=== PATIENT | male | born 1925 | race Caucasian/White ===

== ENCOUNTER 2016-09-19 10:36 | Inpatient (IN) | payer MEDICARE, OTHER ==
[~2016-09-19] VITALS: Ht 176.5 cm; Wt 87.5 kg
[2016-09-19] MEDS ORDERED: ASPIRIN 81MG TABLET PO ONE (12:00)
[2016-09-19] MEDS ORDERED: FUROSEMIDE 40MG/4ML VIAL IV ONE (12:00)
[2016-09-19 12:09] LABS: BASOPHILS % 1.2 % (0.0-2.0); EOSINOPHILS % 1.6 % (0.0-5.0); HEMATOCRIT. 42.4 % (42.0-52.0); HEMOGLOBIN. 14.3 g/dL (14.0-18.0); LYMPHOCYTES % 12.1 % (20.0-50.0); MEAN CORPUSCULAR HEMOGLOBIN 29.8 pg (28.0-32.0); MEAN CORPUSCULAR VOLUME 88.1 fL (80.0-94.0); MEAN PLATELET VOLUME 7.9 fl (7.4-10.4); MONOCYTES % 6.4 % (2.0-8.0); NEUTROPHILS % 78.7 % (40.0-76.0); PLATELET 193 x1000/uL (130-400); RED BLOOD CELL COUNT 4.82 mill/uL (4.7-6.1); RED CELL DISTRIBUTION WIDTH 13.9 % (11.6-14.6)
[2016-09-19 12:16] LABS: INR 1.4; PROTHROMBIN TIME 14.2 sec
[2016-09-19 12:21] LABS: CARBON DIOXIDE 29 mEq/L (21-32); CHLORIDE 103 mEq/L (98-107)
[2016-09-19 20:40] VITALS: BP 111/73
[2016-09-19 21:00] VITALS: BP 111/73
[2016-09-19] MEDS ORDERED: ATEN100T PO (22:28)
[2016-09-19] MEDS ORDERED: ASPI-1035 PO (22:28)
[2016-09-19] MEDS ORDERED: ATOR10TA69 PO (22:28)
[2016-09-19] MEDS ORDERED: FURO40TA5 PO (22:28)
[2016-09-19] MEDS ORDERED: ZOLPIDEM TARTRATE 5MG TABLET PO PRN (23:15)
[2016-09-19] MEDS ORDERED: ACETAMINOPHEN 325MG TABLET PO PRN (23:15)
[2016-09-19] MEDS: POTASSIUM CHLORIDE 20MEQ TABLET SR PO SCH (23:57)
[2016-09-20] VITALS: BP 110/62
[2016-09-20] MEDS ORDERED: PNEUMOCOCCAL 23-VAL P-SAC VAC 0.5 ML IM ONE (00:15)
[2016-09-20 04:00] VITALS: BP 100/56
[2016-09-20 06:34] LABS: CARBON DIOXIDE 29 mEq/L (21-32); CHLORIDE 104 mEq/L (98-107)
[2016-09-20 06:38] LABS: CREATINE KINASE 25 IU/L (39-308); CREATINE KINASE MB FRACTION 2.1 ng/mL (0.5-3.6); TROPONIN I 0.12 ng/mL (0.00-0.04)
[2016-09-20 08:00] VITALS: BP 105/66
[2016-09-20] MEDS: POTASSIUM CHLORIDE 20MEQ TABLET SR PO SCH (08:13)
[2016-09-20] MEDS: ASPIRIN 81MG EC TABLET PO SCH (08:13)
[2016-09-20] MEDS: FUROSEMIDE 40MG/4ML VIAL IVP SCH (08:13)
[2016-09-20] MEDS: ATENOLOL 100 MG TABLET PO SCH ×2 (08:14→20:49)
[2016-09-20] MEDS: ENOXAPARIN 40MG/0.4ML SYR SUBCUT SCH (08:16)
[2016-09-20 11:58] VITALS: BP 109/67
[2016-09-20 16:00] VITALS: BP 106/61
[2016-09-20] MEDS ORDERED: POTASSIUM CHLORIDE 20MEQ TABLET SR PO NR (17:45)
[2016-09-20 20:00] VITALS: BP 99/62
[2016-09-20] MEDS: ATORVASTATIN CALCIUM 10MG TABLET PO SCH (20:48)
[2016-09-21] VITALS: BP 94/63
[2016-09-21 04:00] VITALS: BP 100/67
[2016-09-21 06:30] LABS: EOSINOPHILS % 1.3 % (0.0-5.0); HEMATOCRIT. 41.9 % (42.0-52.0); LYMPHOCYTES % 12.1 % (20.0-50.0); MEAN CORPUSCULAR HEMOGLOBIN 29.4 pg (28.0-32.0); MEAN CORPUSCULAR VOLUME 88.1 fL (80.0-94.0); MEAN PLATELET VOLUME 9.6 fl (7.4-10.4); MONOCYTES % 7.4 % (2.0-8.0); NEUTROPHILS % 78.2 % (40.0-76.0); PLATELET 160 x1000/uL (130-400); RED BLOOD CELL COUNT 4.76 mill/uL (4.7-6.1); RED CELL DISTRIBUTION WIDTH 14.2 % (11.6-14.6)
[2016-09-21 07:49] LABS: CARBON DIOXIDE 31 mEq/L (21-32); CHLORIDE 102 mEq/L (98-107); TROPONIN I 0.08 ng/mL (0.00-0.04)
[2016-09-21 08:00] VITALS: BP 110/67
[2016-09-21] MEDS: ATENOLOL 100 MG TABLET PO SCH ×2 (09:00→21:00)
[2016-09-21] MEDS: POTASSIUM CHLORIDE 20MEQ TABLET SR PO SCH (09:08)
[2016-09-21] MEDS: ASPIRIN 81MG EC TABLET PO SCH (09:08)
[2016-09-21] MEDS: FUROSEMIDE 40MG/4ML VIAL IVP SCH ×2 (09:08→21:56)
[2016-09-21 10:07] LABS: PLATELET ESTIMATE NORMAL
[2016-09-21] MEDS: ENOXAPARIN 40MG/0.4ML SYR SUBCUT SCH (10:15)
[2016-09-21] MEDS ORDERED: LEVOFLOXACIN 500MG PREMIX 100 ML IV SCH ×2 (19:00→22:30)
[2016-09-21 20:00] VITALS: BP 106/67
[2016-09-21 21:43] LABS: CLARITY URINE TURBID (CLEAR); COLOR URINE RED (YELLOW); GLUCOSE URINE NEGATIVE (NEGATIVE); KETONES URINE NEGATIVE (NEGATIVE); LEUKOCYTE ESTERASE URINE 1+ (NEGATIVE); NITRITE URINE POSITIVE (NEGATIVE); OCCULT BLOOD URINE 3+ (NEGATIVE); PROTEIN URINE 1+ (NEGATIVE); SPECIFIC GRAVITY URINE 1.012 (1.005-1.030); UROBILINOGEN URINE 0.2 E.U./dL (0.2-1.0)
[2016-09-21] MEDS: ATORVASTATIN CALCIUM 10MG TABLET PO SCH (21:57)
[2016-09-22] VITALS: BP 96/64
[2016-09-22 04:00] VITALS: BP 104/66
[2016-09-22 06:45] LABS: EOSINOPHILS % 1.8 % (0.0-5.0); HEMATOCRIT. 40.4 % (42.0-52.0); HEMOGLOBIN. 13.7 g/dL (14.0-18.0); LYMPHOCYTES % 18.2 % (20.0-50.0); MEAN CORPUSCULAR HEMOGLOBIN 29.9 pg (28.0-32.0); MEAN CORPUSCULAR VOLUME 88.2 fL (80.0-94.0); MEAN PLATELET VOLUME 8.8 fl (7.4-10.4); PLATELET 158 x1000/uL (130-400); RED BLOOD CELL COUNT 4.58 mill/uL (4.7-6.1); RED CELL DISTRIBUTION WIDTH 14.1 % (11.6-14.6)
[2016-09-22 07:04] LABS: CARBON DIOXIDE 33 mEq/L (21-32); CHLORIDE 99 mEq/L (98-107)
[2016-09-22] MEDS: ASPIRIN 81MG EC TABLET PO SCH (08:34)
[2016-09-22] MEDS: POTASSIUM CHLORIDE 20MEQ TABLET SR PO SCH (08:34)
[2016-09-22] MEDS: ATENOLOL 100 MG TABLET PO SCH (08:34)
[2016-09-22] MEDS: ENOXAPARIN 40MG/0.4ML SYR SUBCUT SCH (08:34)
[2016-09-22 08:45] VITALS: BP 112/70
[2016-09-22] MEDS: FUROSEMIDE 40MG/4ML VIAL IVP SCH (09:59)
[2016-09-22 12:11] VITALS: BP 113/69
[2016-09-22 13:49] VITALS: BP 113/70
== END 2016-09-22 14:12 | disposition home or self-care (01) | DRG 291 ==
LOC: ER 10:38 → 5WST 11:51
PROVIDERS: ADMIT Specialist; ATTEND Specialist
DX: I11.0 Hypertensive heart disease with heart failure (principal); J96.90 Respiratory failure, unspecified, unspecified whether with hypoxia or hypercapnia; E46 Unspecified protein-calorie malnutrition; N39.0 Urinary tract infection, site not specified; I50.43 Acute on chronic combined systolic (congestive) and diastolic (congestive) heart failure; R31.9 Hematuria, unspecified; I25.5 Ischemic cardiomyopathy; E78.00 Pure hypercholesterolemia, unspecified; E78.5 Hyperlipidemia, unspecified; I25.10 Atherosclerotic heart disease of native coronary artery without angina pectoris; Z68.28 Body mass index [BMI] 28.0-28.9, adult
CPT/HCPCS: 36415; 71010; 80048; 80053; 81001; 82550; 82553; 83880; 84484; 85025; 85610; 87040; 87086; 90732; 93005; 93306; 96374; 97162; 99285; J1650; J1940; J1956; A4315